=== PATIENT | male | born 1950 | race Caucasian/White ===

== ENCOUNTER 2016-11-06 19:01 | Emergency (ER) | payer BC, MEDICARE ==
[~2016-11-06 19:01] MED LIST: Iopamidol 370 76% 125 ML VIAL FS ONE; Sodium Chloride Irrig Solution 250 ML BOT ONE
[2016-11-06 19:34] LABS: #Basophils 0.1 thou/uL (0.0-0.2); #Eosinphils 0.1 thou/uL (0.0-0.7); #Monocytes 0.6 thou/uL (0.11-0.59); #Neutrophils 6.4 thou/uL (1.40-6.50); %Basophils 0.7 % (0.0-1.0); %Eosinophils 0.9 % (0.0-10.0); %Lymphocytes 21.7 % (21.0-51.0); %Monocytes 6.2 % (0.0-10.0); %Neutrophils 70.5 % (42.0-75.0); Hemoglobin 14.9 g/dL (14.0-18.0); Mean Corpuscular HGB CONC 33.7 g/dL (32.0-36.0); Mean Corpuscular Hemoglobin 30.9 pg (27.0-31.0); Mean Corpuscular Volume 91.6 fl (80.0-94.0); Mean Platelet Volume 8.1 fL (7.4-10.4); Platelet Count 235 thou/uL (130-400); Red Blood Cell (RBC) Count 4.83 mill/uL (4.70-6.10); White Blood Cell (WBC) Count 9.1 thou/uL (4.8-10.8)
[2016-11-06 19:43] LABS: PTT 28.5 SEC (22.9-36.1); Prothrombin Time 12.9 SEC (12.0-14.7)
[2016-11-06 19:50] LABS: ALT (SGPT) 16 U/L (8-55); AST (SGOT) 20 U/L (5-34); Albumin 4.6 g/dL (3.4-4.8); Alkaline Phosphatase 44 U/L (40-150); Anion Gap 15 mmol/L (10-20); BUN (Urea Nitrogen) 12 mg/dL (8.4-25.7); Bilirubin, Total 0.4 mg/dL (0.2-1.2); Calc. Creatinine Clearance 0 mL/min (70-130); Calcium 9.9 mg/dL (7.8-10.44); Carbon Dioxide 24 mmol/L (23-31); Chloride 99 mmol/L (98-107); Estimated GFR-MDRD 88; Globulin 2.9 g/dL (2.4-3.5); Glucose 105 mg/dL (80-115); Protein, Total 7.5 g/dL (5.8-8.1); Sodium 134 mmol/L (136-145)
[2016-11-06] MEDS ORDERED: Ondansetron HCl/PF 4 MG/2 ML Vial ONE (19:58)
[2016-11-06] MEDS ORDERED: Triple Antibiotic Oint 1 GM Packet ONE (19:59)
--- NOTE | 2016-11-06 20:04 | CT ---
NONCONTRAST CT OF THE BRAIN: Indication: Injury with head pain. Comparison: None. FINDINGS: There is a left parietal scalp contusion. The skull is intact. There is a mucous retention cyst within the inferior aspect of both maxillary s inuses. No acute infarct, hemorrhage, or hydrocephalus is present. Septum and third ventricle are midline. IMPRESSION: No acute intracranial abnormality. POS: [facility]
--- NOTE | 2016-11-06 20:35 | CT ---
NONCONTRAST CT OF THE CERVICAL SPINE: Indication: Trauma with neck pain. Comparison: None. FINDINGS: No acute fracture or subluxation is evident. There is mild multilevel disc degenerative disease of the cervical spine. There is multilevel facet osteoarthritic change. This is severe on the left at C3-4. Lung apices are clear. Prevertebral soft tissues are within normal limits. Craniocervical junction appears within normal limits. IMPRESSION: 1. No acute fracture or subluxation evident. 2. Mild to moderate spondylosis of the cervical spine. POS: [facility]
--- NOTE | 2016-11-06 20:41 | CT ---
CT OF THE CHEST WITH IV CONTRAST CT OF THE ABDOMEN AND PELVIS WITH IV CONTRAST: Indication: Trauma with chest, abdomen, and pelvic pain. Comparison: CT abdomen/pelvis 10-27-13, 10-26-13. FINDINGS: CHEST: There is a small amount of gas seen within the right subclavian and right IJ central venous structur es likely related to IV initiation. The heart and great vessels appear without acute traumatic injury. 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 There is coronary and thoracic calcifications. There is bibasilar atelectasis. No pulm onary contusion, pleural effusion, or pneumothorax is evident. ABDOMEN/PELVIS: There are stable hepatic and left renal cysts. The spleen, pancreas, and adrenal glands are normal a ppearing. Right kidney is normal appearing. There is a moderate amount of retained stool within the colon. There is wall thickening involving the bladder, but it is slightly asymmetric along the right latera l bladder wall. The prostate is enlarged measuring 5.7 cm. There are fat containing bilateral inguin al hernias. There is a stable hemangioma within T9. There are scattered degenerative and osteoarthritic change. No acute osseous abnormality is evident. There is soft tissue contusing involving the left posterolateral aspect of the flank. IMPRESSION: 1. No definite acute traumatic injury involving the chest, abdomen, or pelvis. 2. Asymmetric wall thickening involving the bladder. This may be related to chronic blood or outlet obstruction, however, a superimposed bladder lesion cannot be entirely excluded. Recommend urology f ollow up. 3. Prostate enlargement. 4. Stable hepatic and left renal cysts. 5. Mild to moderate retained stool within the colon. 6. Other chronic findings as above. POS: [facility]
== END 2016-11-06 20:45 | disposition home or self-care (01) ==
LOC: MADERS 19:01
DX: S06.0X9A Concussion with loss of consciousness of unspecified duration, initial encounter (principal); S01.01XA Laceration without foreign body of scalp, initial encounter; S51.002A Unspecified open wound of left elbow, initial encounter; S30.1XXA Contusion of abdominal wall, initial encounter; Z87.891 Personal history of nicotine dependence; I10 Essential (primary) hypertension; E78.5 Hyperlipidemia, unspecified; I25.10 Atherosclerotic heart disease of native coronary artery without angina pectoris; W17.89XA Other fall from one level to another, initial encounter; Y92.69 Other specified industrial and construction area as the place of occurrence of the external cause; Y99.0 Civilian activity done for income or pay
CPT/HCPCS: 12002; 70450; 71260; 72125; 74177; 80053; 85025; 85610; 85730; 93005; 96374; 96375; J2270; J2405

== ENCOUNTER 2016-11-11 14:28 | Emergency (ER) | payer MEDICARE | END 2016-11-11 14:56 | disposition home or self-care (01) | LOC: MADERS 14:28 | DX: S01.01XD Laceration without foreign body of scalp, subsequent encounter (principal); F17.220 Nicotine dependence, chewing tobacco, uncomplicated; Z79.891 Long term (current) use of opiate analgesic ==